=== PATIENT | male | born 1950 | race Caucasian/White ===

== ENCOUNTER → 2016-11-08 | Outpatient (CLI) | payer OTHER ==
--- NOTE | 2016-11-08 15:28 | KCIC ---
PROCEDURE CT chest without contrast. HISTORY Follow up of lung nodule. TECHNIQUE Helical CT imaging of the chest is performed without IV contrast. PQRS: One or more the following individualized dose reduction techniques were utilized for the study: 1. Automated exposure control. 2. Adjustment of the mA and/or kV according to patient size. 3. Use of iterative reconstruction technique. COMPARISON Oldest CT chest April 15, 2014. FINDINGS The thyroid is symmetric. Stable upper limits of normal in size AP window lymph node. Calcified subcarinal lymph node. Limited evaluation of the neena without IV contrast. Tiny calcified right hilar lymph nodes. The great vessels are normal caliber. There is coronary artery disease. There is a stent in the LAD. The cardiac size is normal, no pericardial effusion. Minimal opacity dependently in the trachea near the misael is probably retained secretions or mucous. There is severe paraseptal emphysema. Large bulla right lung apex. Linear opacities in the lung bases are unchanged and compatible with scarring. Calcified granuloma right lower lobe. There are 3 nodules in the medial right lower lobe there are stable, images 83, 84 and 86. 5 millimeter nodule in the left lower lobe is not significantly changed, image 77. Tiny subpleural nodule in the lateral left lung is stable, image 83. Tiny subpleural nodule in the anterior left upper lobe is stable, image 59. Nodule more superiorly in the anterior left upper lobe is also stable allowing for differences in slice acquisition, image 43. Oval nodule in the right upper lobe measuring 6 millimeters is stable, image 69. Calcified granulomas in the spleen. Visualized upper abdomen otherwise unremarkable. Mild anterior wedging of mid thoracic vertebral body is stable. No acute compression fracture. IMPRESSION 1. There are multiple subcentimeter pulmonary nodules. The nodules are stable compared April 2014. No further follow up is necessarily required. 2. Severe paraseptal emphysema. Electronically signed by: Gorge Nickerson MD (Nov 08, 2016 15:27:33)
== END | disposition home or self-care (01) ==
LOC: KCIC CT 09:42
PROVIDERS: ATTEND Internal Medicine Critical Care Medicine
DX: J43.8 Other emphysema (principal); I25.10 Atherosclerotic heart disease of native coronary artery without angina pectoris; J84.10 Pulmonary fibrosis, unspecified
CPT/HCPCS: 71250

== ENCOUNTER → 2017-08-04 | Outpatient (CLI) | payer OTHER ==
--- NOTE | 2017-08-04 10:44 | KCIC ---
PQRS Compliance Statement: One or more of the following individualized dose reduction techniques were utilized for this examination: 1. Automated exposure control 2. Adjustment of the mA and/or kV according to patient size 3. Use of iterative reconstruction technique CT CHEST WO CONTRAST Clinical Indication: Lung nodule follow-up. 50 pack-year smoking history, quit 6 months ago. Comparison: CT chest without contrast November 08, 2016 and April 15, 2014. TECHNIQUE: Helical CT imaging of the chest is performed without IV contrast. Findings: Image numbers reference series 2 unless otherwise stated. Stable AP window lymph node. Partially calcified subcarinal lymph node. Limited evaluation of the neena without IV contrast. Calcified right hilar lymph nodes. The great vessels are stable. There is coronary artery disease. Cardiac size normal, no pericardial effusion. There is no pleural effusion. Tiny linear opacity in the right mainstem bronchus is probably retained secretions or mucous. Mild scarring in the lower lobes is stable. Calcified granuloma right lower lobe. Stable large right apical bulla. Severe paraseptal emphysema. Right upper lobe intrapulmonary lymph node is stable on image 138. 3 sub-5 mm nodules in the medial right lower lobe are stable. The central nodule is partially calcified. There are a couple of sub-5 mm nodules in the posterior right upper lobe that are new. Appearance suggests they may be infectious/inflammatory. Nodules seen on images 118 and 119. Subpleural anterior left upper lobe nodule stable, image 122. Nodule in the left lower lobe is stable, image 158. Calcified granulomas in the spleen. Bones appear stable. IMPRESSION: 1. There are couple of sub-5 mm nodules in the posterior right upper lobe that are new and appear to be infectious/inflammatory. Suggest CT chest follow-up in 3-6 months. 2. Other pulmonary nodules are stable. 3. Severe paraseptal emphysema. Electronically signed by: Gorge Nickerson MD (08/04/2017 10:41 AM) [id number]
== END | disposition home or self-care (01) ==
LOC: KCIC CT 09:52
PROVIDERS: ATTEND Internal Medicine Critical Care Medicine
DX: J43.9 Emphysema, unspecified (principal); Z87.891 Personal history of nicotine dependence
CPT/HCPCS: 71250